=== PATIENT | male | born 1970 | race African-American/Black ===

== ENCOUNTER 2018-05-14 09:26 | Emergency (ER) | payer BC ==
[~2018-05-14] VITALS: Ht 193 cm; Wt 96.2 kg
[~2018-05-14 09:26] MED LIST: LISINOPRIL-HCT1 EAC2 PO; NEXIUM10 MG PO; NORCO 5-325 TA1 EACH PO; ROCEPHIN 11 GM/1001 IV; TRAMADOL 50 MG50 MG PO; TYLENOL325 MG PO
[2018-05-14 10:29] LABS: ABSOLUTE NEUTROPHILS 5.4 thou/uL (1.4-8.2); BASOPHILS 1.1 % (0.0-2.0); EOSINOPHILS 1.8 % (0.0-3.0); LYMPHOCYTES 27.1 % (24.0-44.0); MCH 30.8 pg (26.0-34.0); MCHC 35.1 g/dL (28.0-37.0); MCV 87.9 fL (80.0-100.0); PLATELET COUNT 345 thou/uL (150-400); RBC 4.55 mil/uL (4.50-6.00); RDW 13.4 % (10.5-14.5); WBC 8.4 thou/uL (4.0-11.0)
[2018-05-14 10:34] LABS: CALCIUM 9.2 mg/dL (8.5-10.1); CREATININE 1.1 mg/dL (0.7-1.3); POTASSIUM 3.6 mmol/L (3.5-5.1)
[2018-05-14 13:05] LABS: BF NUCLEATED CELLS 403; BF RBC 3425; COLOR YELLOW; TOTAL VOLUME 10 mL
[2018-05-14 13:06] LABS: CLARITY CLOUDY
[2018-05-14 13:07] LABS: BF CRYSTALS No Crystals seen; SOURCE KNEE JOINT
[2018-05-14] MEDS ORDERED: SENNA8.6 MG PO (13:31)
[2018-05-14] MEDS ORDERED: NORCO 5-325 TA1 EACH PO (13:31)
[2018-05-14] MEDS ORDERED: CELEBREX 200 M200 M1 PO (13:31)
[2018-05-14 13:52] VITALS: BP 159/87
[2018-05-14 14:03] LABS: BF MACROPHAGE 33; BF NEUTROPHILS 64; SOURCE KNEE JOINT
[2018-05-15 11:07] LABS: BODY FLUID GLUCOSE 100 mg/dL (()); BODY FLUID LDH 106 IU/L (())
[2018-05-16 09:20] LABS: SOURCE SYNOVIAL
== END 2018-05-14 13:52 | disposition home or self-care (01) ==
LOC: ER 09:26
PROVIDERS: Physician Assistant
DX: M25.561 Pain in right knee (principal)

== ENCOUNTER 2019-07-23 17:48 | Emergency (ER) | payer BC ==
[~2019-07-23] VITALS: Ht 193 cm; Wt 98.4 kg
[~2019-07-23 17:48] MED LIST changes: +CELEBREX 200 M200 M1 PO; +SENNA8.6 MG PO
[2019-07-23] MEDS ORDERED: NEXIUM20 M1 PO (18:24)
[2019-07-23 20:04] VITALS: BP 157/96
== END 2019-07-23 20:04 | disposition home or self-care (01) ==
LOC: ER 17:48
DX: M25.562 Pain in left knee (principal); R42 Dizziness and giddiness; Z98.890 Other specified postprocedural states

== ENCOUNTER 2020-01-16 15:34 | Emergency (ER) | payer BC ==
[~2020-01-16] VITALS: Ht 193 cm; Wt 98.4 kg
[~2020-01-16 15:34] MED LIST changes: +NEXIUM20 M1 PO
[2020-01-16 16:01] LABS: ABSOLUTE NEUTROPHILS 3.5 thou/uL (1.4-8.2); BASOPHILS 1.2 % (0.0-2.0); EOSINOPHILS 4.1 % (0.0-3.0); HEMATOCRIT 44.4 % (42.0-52.0); HEMOGLOBIN 15.1 gm/dL (14.0-18.0); LYMPHOCYTES 43.5 % (24.0-44.0); MCHC 33.9 g/dL (28.0-37.0); MCV 85.5 fL (80.0-100.0); MONOCYTES 6.9 % (1.0-8.0); PLATELET COUNT 374 thou/uL (150-400); POLYS 44.3 % (36.0-66.0); RBC 5.19 mil/uL (4.50-6.00); RDW 15.1 % (10.5-14.5); WBC 7.9 thou/uL (4.0-11.0)
[2020-01-16 16:09] LABS: ANION GAP 10 mmol/L (7-16); BUN 14 mg/dL (7-18); CALCIUM 8.5 mg/dL (8.5-10.1); CHLORIDE 99 mmol/L (98-107); CO2 27 mmol/L (21-32); CREATININE 1.2 mg/dL (0.7-1.3); GLUCOSE 110 mg/dL (74-106); POTASSIUM 3.3 mmol/L (3.5-5.1); SODIUM 136 mmol/L (136-145)
[2020-01-16 16:19] LABS: ALBUMIN 4.2 g/dL (3.4-5.0); SGOT 35 U/L (15-37); SGPT 45 U/L (30-65); TOTAL BILIRUBIN 0.6 mg/dL (0.2-1.0); TOTAL PROTEIN 8.5 g/dL (6.4-8.2); TROPONIN-I <0.06 ng/mL (<0.06)
[2020-01-16 17:46] LABS: URINE BILIRUBIN NEGATIVE (Negative); URINE BLOOD NEGATIVE (Negative); URINE CLARITY CLEAR; URINE COLOR YELLOW; URINE GLUCOSE-RANDOM* NEGATIVE (Negative); URINE KETONES NEGATIVE (Negative); URINE LEUKOCYTES-REFLEX NEGATIVE (Negative); URINE NITRITE-REFLEX NEGATIVE (Negative); URINE PROTEIN (DIPSTICK) NEGATIVE (Negative); URINE SPECIFIC GRAVITY <= 1.005 (1.005-1.035); URINE UROBILINOGEN 0.2 E.U./dl (0.2-1.0)
[2020-01-16 17:54] LABS: AMP/METHAMP Negative (Negative); BARBITURATES Negative (Negative); BENZODIAZEPINES Negative (Negative); COCAINE Negative (Negative); METHADONE Negative (Negative); OPIATES Negative (Negative); PCP Negative (Negative)
[2020-01-16 18:39] VITALS: BP 161/69
--- NOTE | 2020-01-17 09:18 | EKG ---
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 : 1970 Requested By: Jasvir Felipe Order Number: [id number] MD: Dale Knight Measurements Intervals [place] Rate: 67 P: 60 SD: 183 QRS: 35 QRSD: 95 T: 55 QT: 478 QTc: 505 Interpretive Statements Sinus rhythm Atrial premature complex RSR' in V1 or V2, probably normal variant Borderline T wave abnormalities Prolonged QT interval Compared to ECG 09/09/2015 10:45:36 Atrial premature complex(es) now present RSR' in V1 or V2 now present T-wave abnormality now present Electronically Signed On 01-17-2020 9:18:41 CDT by Dale Knight [email or web address] <ELECTRONICALLY SIGNED> By: Dale Knight MD, [facility] 01/17/20 0918 41 154 Dale Knight MD, [facility] /EPI
== END 2020-01-16 18:39 | disposition home or self-care (01) ==
LOC: ER 15:34
PROVIDERS: Emergency Medicine
DX: F41.0 Panic disorder [episodic paroxysmal anxiety] (principal); R42 Dizziness and giddiness; Z98.890 Other specified postprocedural states; Z79.899 Other long term (current) drug therapy

== ENCOUNTER 2020-03-21 16:36 | Inpatient (IN) | payer BC ==
[~2020-03-21] VITALS: Ht 193 cm; Wt 100.2 kg
[2020-03-21 16:42] VITALS: BP 202/115
[2020-03-21 17:34] LABS: BASOPHILS 0.8 % (0.0-2.0); EOSINOPHILS 3.5 % (0.0-3.0); HEMATOCRIT 43.1 % (42.0-52.0); HEMOGLOBIN 14.7 gm/dL (14.0-18.0); LYMPHOCYTES 40.2 % (24.0-44.0); MCH 29.8 pg (26.0-34.0); MCV 87.7 fL (80.0-100.0); MONOCYTES 6.6 % (1.0-8.0); PLATELET COUNT 359 thou/uL (150-400); POLYS 48.9 % (36.0-66.0); RBC 4.92 mil/uL (4.50-6.00); RDW 14.4 % (10.5-14.5); WBC 8.1 thou/uL (4.0-11.0)
[2020-03-21 17:42] LABS: CALCIUM 8.6 mg/dL (8.5-10.1); CREATININE 1.3 mg/dL (0.7-1.3); POTASSIUM 4.1 mmol/L (3.5-5.1)
[2020-03-21 18:19] VITALS: BP 202/115
[2020-03-21 18:30] LABS: CHOLESTEROL 189 mg/dL (<200); HDL CHOLESTEROL 74 mg/dL (>40); LDL CHOLESTEROL 70 mg/dL (<100); TC:HDL 2.6 Ratio (Not establshd); TRIGLYCERIDE 228 mg/dL (<150); VLDL 46 mg/dL (<40)
[2020-03-21 18:36] VITALS: BP 168/105
[2020-03-21 19:00] VITALS: BP 179/100
[2020-03-21 23:41] VITALS: BP 158/98
[2020-03-22] VITALS (7 sets, daily range): BP systolic 136–154; BP diastolic 91–102
--- NOTE | 2020-03-22 02:11 | NUR ---
PATIENT TRANSFERRED FROM ER AT SHIFT CHANGE. ASSUMED CARE OF PATIENT AT APPROXIMATELY 1900. AT APPROXIMATELY 2350 PATIENT C/O HEADACHE AND DIFFICULTY SWALLOWING AGAIN. BP 167/98. UPDATED COLLEGE OF EDUCATION DEAN AND NOTIFIED HER OF PATIENTS HX OF ANXIETY. OBTAINED ONETIME ORDER FOR XANAX. ADMINISTERED ORDERED ALONG WITH PRN PAIN MEDICATION. PATIENT CURRENTLY RESTING WITH EYES CLOSED. WILL CONTINUE TO MONITOR.
--- NOTE | 2020-03-22 10:02 | NUR ---
MILD HEADACHE 3/10, DENIES NEED FOR PAIN MEDICATION AT THIS TIME. TALKATIVE, SMILING, WATCHING FOOTBALL ON TV.
--- NOTE | 2020-03-22 11:18 | EKG ---
[facility] [place] [address] ELECTROCARDIOGRAM REPORT Name: SIMONA GUERRIER Room #: 200-I ADM IN M.R.#: [id number] Admission: 03/21/20 Attend Phys: Merry Canas Discharge: Date of : 68 Report #: [id number] THIS REPORT FOR: cc: Tana Hill MD, Ghazal A. 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 : 1970 Requested By: Agapito Neves Order Number: [id number] MD: Fransisco Lawrence Measurements Intervals [place] Rate: 64 P: 52 MT: 178 QRS: 18 QRSD: 92 T: 30 QT: 404 QTc: 417 Interpretive Statements Sinus rhythm Atrial premature complexes Abnormal R-wave progression, early transition Compared to ECG 01/16/2020 15:42:36 T-wave abnormality no longer present Prolonged QT interval no longer present Electronically Signed On 03-22-2020 11:17:44 CDT by Fransisco Lawrence [email or web address] <ELECTRONICALLY SIGNED> By: Fransisco Lawrence MD, FACC 03/22/20 1117 22 182 Fransisco Lawrence MD, FAC /EPI
[2020-03-22 16:29] LABS: AMP/METHAMP Negative (Negative); BARBITURATES Negative (Negative); BENZODIAZEPINES Negative (Negative); COCAINE Negative (Negative); METHADONE Negative (Negative); OPIATES Negative (Negative); PCP Negative (Negative)
--- NOTE | 2020-03-23 01:56 | NUR ---
ASSUMED CARE OF PATIENT AT 1900. PATIENT RATED HEADACHE 1/10 AT INITIAL ASSESSMENT. DECLINED INTERVENTION. PATIENT SINUS GRACIELA THROUGH NOC. LAST BP 136/92. PATIENT APPEARS TO BE PROGRESSING TOWARDS CARE PLAN GOALS.
[2020-03-23 05:45] VITALS: BP 135/82
[2020-03-23 07:30] VITALS: BP 132/86
[2020-03-23] MEDS ORDERED: AMLODIPINE BESY10 MG PO (08:45)
--- NOTE | 2020-03-23 09:35 | NUR ---
ASSUMED CARE AT NAGE OF SHIFT. ALERTX4, DENIES PAIN, DENIES SOB, DENIES HEADACHE, BM CONTROLED. UNABLE TO MANAGE THE MRI. SA ON MONITOR. WILL DC HOME WITH SELF CARE.
[2020-03-23 09:40] VITALS: BP 135/82
== END 2020-03-23 11:00 | disposition home or self-care (01) | DRG 305 ==
LOC: ER 16:36 → 2N 19:16
PROVIDERS: Emergency Medicine; ADMIT Hospitalist; ATTEND Hospitalist
DX: I16.0 Hypertensive urgency (principal); I10 Essential (primary) hypertension; R53.1 Weakness; K21.9 Gastro-esophageal reflux disease without esophagitis; G44.209 Tension-type headache, unspecified, not intractable; R20.0 Anesthesia of skin; F41.9 Anxiety disorder, unspecified; Z79.899 Other long term (current) drug therapy; Z86.73 Personal history of transient ischemic attack (TIA), and cerebral infarction without residual deficits
CPT/HCPCS: 10081